=== PATIENT | male | born 1985 | race American Indian/Alaskan Native ===

== ENCOUNTER 2019-11-14 09:01 | Emergency (ER) | payer SELFPAY ==
[2019-11-14 09:08] VITALS: BP 116/62
--- NOTE | 2019-11-14 10:11 | Emergency Department Report ---
- General Chief complaint: Skin/Abscess/Foreign Body Stated complaint: BOIL ON BUTTOCKS Time Seen by Provider: 11/14/19 09:49 Source: patient, family Mode of arrival: Ambulatory Limitations: No Limitations - History of Present Illness Initial comments: Patient is a 33-year-old male presents emergency room with complaints of a possible abscess to the left lateral thigh that began a couple of days ago. He states that he felt like something bit him a couple days ago. He did not feel anything bite him. He denies any itching. He states that he has seen a small amount of drainage which is pus mixed with blood. He states he has had these in the past and states that has been multiple years since he had to have an incision and drainage. He denies any fever, numbness, weakness, tingling, vomiting, any other symptoms. He has a past medical history of HIV and states that he is on his antivirals. He states that he does have an infectious disease doctor. He states that he does not know his CD4 count. He reports he has an allergy to aspirin. - Related Data Previous Rx's Medication Instructions Recorded Last Taken Type Acetaminophen/Codeine [Tylenol 1 tab PO Q6H PRN #10 tab 11/14/19 Unknown Rx /Codeine # 3 tab] Clindamycin [Clindamycin CAP] 450 mg PO TID 7 Days #63 capsule 11/14/19 Unknown Rx Allergies Allergy/AdvReac Type Severity Reaction Status Date / Time aspirin Allergy Unknown Verified 11/14/19 09:03 Abscess Boil HPI - HPI Chief Complaint: Skin/Abscess/Foreign Body Stated Complaint: BOIL ON BUTTOCKS Time Seen by Provider: 11/14/19 09:49 Home Medications: Previous Rx's Medication Instructions Recorded Last Taken Type Acetaminophen/Codeine [Tylenol 1 tab PO Q6H PRN #10 tab 11/14/19 Unknown Rx /Codeine # 3 tab] Clindamycin [Clindamycin CAP] 450 mg PO TID 7 Days #63 capsule 11/14/19 Unknown Rx Allergies/Adverse Reactions: Allergies Allergy/AdvReac Type Severity Reaction Status Date / Time aspirin Allergy Unknown Verified 11/14/19 09:03 ED Review of Systems ROS: Stated complaint: BOIL ON BUTTOCKS Other details as noted in HPI Comment: All other systems reviewed and negative ED Past Medical Hx - Past Medical History Previous Medical History?: No Hx Asthma: Yes Hx HIV: Yes - Surgical History Past Surgical History?: No - Social History Smoking Status: Never Smoker Substance Use Type: None - Medications Home Medications: Home Medications Medication Instructions Recorded Confirmed Last Taken Type Acetaminophen/Codeine [Tylenol 1 tab PO Q6H PRN #10 tab 11/14/19 Unknown Rx /Codeine # 3 tab] Clindamycin [Clindamycin CAP] 450 mg PO TID 7 Days #63 capsule 11/14/19 Unknown Rx ED Physical Exam - General Limitations: No Limitations General appearance: alert, in no apparent distress - Head Head exam: Present: atraumatic, normocephalic - Eye Eye exam: Present: normal appearance - ENT ENT exam: Present: mucous membranes moist - Neurological Exam Neurological exam: Present: alert, oriented X3 - Psychiatric Psychiatric exam: Present: normal affect, normal mood - Skin Skin exam: Present: warm, other (2 cm area of induration with a couple of small openings present with a very small amount of serous/purulent drainage, there is a 3 cm area of surrounding edema and mild erythema, no necrosis, no skin denuding, no blistering) ED Course Vital Signs 11/14/19 09:04 Temperature 97.8 F Pulse Rate 90 Respiratory 16 Rate Blood Pressure 116/62 [Left] O2 Sat by Pulse 97 Oximetry ED Medical Decision Making - Medical Decision Making Patient is a 33-year-old male presents emergency room with complaints of a possible abscess to the left lateral thigh that began a couple of days ago. He states that he felt like something bit him a couple days ago. He did not feel a nything bite him. He denies any itching. He states that he has seen a small amount of drainage which is pus mixed with blood. He states he has had these in the past and states that has been multiple years since he had to have an incision and drainage. He denies any fever, numbness, weakness, tingling, vomiting, any other symptoms. He has a past medical history of HIV and states that he is on his antivirals. He states that he does have an infectious disease doctor. He states that he does not know his CD4 count. He reports he has an allergy to aspirin. vitals are normal. on exam: 2 cm area of induration with a couple of small openings present with a very small amount of serous/purulent drainage, there is a 3 cm area of surrounding edema and mild erythema, no necrosis, no skin denuding, no blistering. Abscess appears to be open and already draining, there is a small area of surrounding cellulitis. Patient does not need further I&D at this time. Patient will be placed on antibiotics and advised patient that the area needed to be reexamined within the next 2 days, discussed the importance with patient having the area reexamined as he may have to have a I&D procedure if it is not improving with antibiotics. given prescription for clindamycin and tylenol #3. advised pt please take medication as prescribed. Do not drive or operate heavy machinery while taking pain medication. Use warm compresses 3 times a day. Please follow-up with your primary care doctor for reexamination within the next 2 days. This area needs to be reexamined within 2 days. Follow-up with your infectious disease doctor. Return to emergency room immediately for any new or worsening symptoms including but not limited to worsening pain, worsening redness, worsening swelling, worsening drainage, fever, vomiting, etc. - Differential Diagnosis abscess, cellulitis, insect bite Critical care attestation.: If time is entered above; I have spent that time in minutes in the direct care of this critically ill patient, excluding procedure time. ED Disposition Clinical Impression: Abscess Cellulitis Qualifiers: Site of cellulitis: extremity Site of cellulitis of extremity: lower extremity Laterality: left Qualified Code(s): L03.116 - Cellulitis of left lower limb Disposition: DC-01 TO HOME OR SELFCARE Is pt being admited?: No Does the pt Need Aspirin: No Condition: Stable Instructions: Cellulitis (ED), Abscess (ED) Additional Instructions: Please take medication as prescribed. Do not drive or operate heavy machinery while taking pain medication. Use warm compresses 3 times a day. Please follow-up with your primary care doctor for reexamination within the next 2 days. This area needs to be reexamined within 2 days. Follow-up with your infectious disease doctor. Return to emergency room immediately for any new or worsening symptoms including but not limited to worsening pain, worsening redness, worsening swelling, worsening drainage, fever, vomiting, etc. Prescriptions: Clindamycin [Clindamycin CAP] 450 mg PO TID 7 Days #63 capsule Acetaminophen/Codeine [Tylenol /Codeine # 3 tab] 1 tab PO Q6H PRN #10 tab PRN Reason: Pain , Severe (7-10) Referrals: ROMINA CABA MD [Staff Physician] - 2-3 Days [facility] [Provider Group] - 2[facility]3 Days [facility] [Outside] - 2-3 Days your, infectious disease doctor [Other] - 2-3 Days Time of Disposition: 10:12 Print Language: ROMANSH
== END 2019-11-14 10:39 | disposition home or self-care (01) ==
LOC: ED 09:01
DX: L03.116 Cellulitis of left lower limb (principal); J45.909 Unspecified asthma, uncomplicated
CPT/HCPCS: 99282